=== PATIENT | male | born 1975 | race Two or more races ===

== ENCOUNTER 2019-02-24 12:43 | Emergency (ER) | payer SELFPAY ==
[~2019-02-24] VITALS: Ht 165.1 cm; Wt 99.8 kg
[2019-02-24 12:53] VITALS: BP 151/102
--- NOTE | 2019-02-24 12:56 | NUR ---
SEEN AND EXAMINED BY
[2019-02-24] MEDS ORDERED: TDAP [DIPH/PERTUSSIS/TET] 0.5 ML VIAL IM ONE ×2 (13:00)
[2019-02-24] MEDS ORDERED: GELATIN SPONGE,ABSORBABLE 1 SPONGE SPONGE TP ONE (13:16)
--- NOTE | 2019-02-24 13:39 | NUR ---
Patient discharged to home in stable condition. Written and verbal after care instructions given. Patient verbalizes understanding of instruction.
== END 2019-02-24 13:40 | disposition home or self-care (01) ==
LOC: ER 12:43
DX: S61.315A Laceration without foreign body of left ring finger with damage to nail, initial encounter (principal); W45.8XXA Other foreign body or object entering through skin, initial encounter; Y93.89 Activity, other specified; Y92.89 Other specified places as the place of occurrence of the external cause; Y99.8 Other external cause status
CPT/HCPCS: 90715